=== PATIENT | male | born 2000 | race Caucasian/White ===

== ENCOUNTER 2021-09-01 16:53 | Emergency (ER) | payer OTHER, SELFPAY ==
[~2021-09-01] VITALS: Ht 180.3 cm; Wt 81.6 kg
[2021-09-01 16:57] VITALS: BP_SYST 162
--- NOTE | 2021-09-01 17:02 | NUR ---
Pt triaged and placed in H1.
--- NOTE | 2021-09-01 17:02 | NUR ---
Per report received, pt has nasal deformity s/p being hit with a baseball and has had nose bleeding. No blood noted at this time. Awaiting MD basilio.
--- NOTE | 2021-09-01 18:32 | NUR ---
Dr Downing to bedside to assess patient
[2021-09-01] MEDS ORDERED: IBUP-1971 PO (18:54)
[2021-09-01] MEDS ORDERED: HYDR-3917 PO (18:54)
--- NOTE | 2021-09-01 19:00 | NUR ---
Patient given written and verbal discharge instructions and verbalizes understanding. ER MD discussed with patient the results and treatment provided. Patient in stable condition. ID arm band removed. Rx of [place] and Ibuprofen given. Patient educated on pain management and to follow up with PMD. Pain scale 2/10. Opportunity for questions provided and answered. Medication side effect fact sheet provided.
[2021-09-01 19:03] VITALS: BP_SYST 162
== END 2021-09-01 19:03 | disposition home or self-care (01) ==
LOC: SED 16:53
DX: S02.2XXA Fracture of nasal bones, initial encounter for closed fracture (principal); W21.03XA Struck by baseball, initial encounter; Y93.64 Activity, baseball; Y92.89 Other specified places as the place of occurrence of the external cause; Y99.8 Other external cause status
CPT/HCPCS: 99283